=== PATIENT | female | born 1990 | race Caucasian/White ===

== ENCOUNTER 2016-12-10 11:46 | Emergency (ER) | payer OTHER ==
[2016-12-10 12:32] LABS: BILIRUBIN NEGATIVE (NEGATIVE); BLOOD 3+ Ery/uL (NEGATIVE); CLARITY CLEAR (CLEAR); COLOR YELLOW (YELLOW); GLUCOSE (U) NORMAL (NORMAL); KETONE (U) NEGATIVE (NEGATIVE); LEUKOCYTES NEGATIVE Leu/uL (NEGATIVE); NITRITE NEGATIVE (NEGATIVE); PROTEIN NEGATIVE (NEGATIVE); SPECIFIC GRAVITY <=1.005 (1.001-1.030); UROBILINOGEN 0.2 mg/dL (0.2-1.0)
[2016-12-10 12:35] LABS: BASOPHIL 0.3 % (0-2); EOSINOPHIL 3.2 % (0-5); HCT 40.2 % (37.0-47.0); HGB 13.8 g/dl (12.5-16.0); LYMPHOCYTE 39.8 % (15-48); MCH 31.2 pg (25.0-31.0); MCHC 34.3 g/dL (32.0-36.0); MONOCYTE 10.4 % (0-12); NEUTROPHIL 46.3 % (41-80); PLT 253 K/uL (150-400); RBC 4.42 M/uL (4.20-5.40); WBC 6.2 K/uL (4.0-10.5)
[2016-12-10 12:44] LABS: ALBUMIN 4.2 g/dL (3.5-5.0); BILIRUBIN - TOTAL 0.2 mg/dL (0.1-1.0); CREATININE 0.9 mg/dL (0.5-1.0); GLOBULIN (CALCULATION) 2.9 g/dL (2.2-4.2); TOTAL PROTEIN 7.1 g/dL (6.4-8.3)
[2016-12-10 12:47] LABS: AMPHETAMINES NEGATIVE (NEGATIVE); BENZODIAZEPINES NEGATIVE (NEGATIVE); COCAINE NEGATIVE (NEGATIVE)
[2016-12-10 12:48] LABS: BARBITURATES NEGATIVE (NEGATIVE); MARIJUANA (THC) NEGATIVE (NEGATIVE); METHADONE NEGATIVE (NEGATIVE); TRICYCLIC ANTIDEPRESSANT NEGATIVE (NEGATIVE)
[2016-12-10 13:13] LABS: BACTERIA TRACE; SQUAMOUS EPITHELIAL CELLS RARE; URINARY WBC RARE
== END 2016-12-10 13:50 | disposition home or self-care (01) ==
LOC: FER 11:46
PROVIDERS: Emergency Medicine
DX: R07.9 Chest pain, unspecified (principal); F19.10 Other psychoactive substance abuse, uncomplicated; F31.30 Bipolar disorder, current episode depressed, mild or moderate severity, unspecified; F43.10 Post-traumatic stress disorder, unspecified; Z79.899 Other long term (current) drug therapy
CPT/HCPCS: 36415; 71010; 80053; 80305; 81001; 84443; 84484; 85025; 85379; 93005